=== PATIENT | male | born 1970 | race Two or more races ===

== ENCOUNTER 2019-10-29 16:29 | Emergency (ER) | payer MEDICAID ==
[~2019-10-29] VITALS: Ht 175.3 cm; Wt 99.8 kg
[2019-10-29 16:32] VITALS: BP 129/78
--- NOTE | 2019-10-29 16:53 | NUR ---
ambulatory with steady gait. given 2 sandwiches and tolerated well. Patient discharged to home in stable condition. Written and verbal after care instructions given. Patient verbalizes understanding of instruction. Refused to sign discharge paperworks.
== END 2019-10-29 16:53 | disposition home or self-care (01) ==
LOC: ER 16:35
DX: K42.9 Umbilical hernia without obstruction or gangrene (principal); Z76.0 Encounter for issue of repeat prescription

== ENCOUNTER 2021-01-19 00:53 | Emergency (ER) | payer MEDICAID ==
[~2021-01-19] VITALS: Ht 175.3 cm; Wt 99.8 kg
--- NOTE | 2021-01-19 01:13 | NUR ---
[id number], SUSPECTED DRUG OD.GIVEN NARCAN 2MG IV; PT AWAKE/ALERT IN TRIAGE, ANSWERING QUESTIONS. RR EVEN AND UNLABORED, NO SIGNS OF SOB NOTED. PATIENT CONNECTED TO [facility].
--- NOTE | 2021-01-19 04:00 | NUR ---
PATIENT IN BED SLEEPING EASY TO AROUSE. PATINET PROVIDED WITH FLUIDS PO, TOLERATED WELL. PATIENT VSS, WILL CONTINUE TO MONITOR.
[2021-01-19] MEDS ORDERED: NALO4SPR NS (05:11)
[2021-01-19 05:44] VITALS: BP 128/61
--- NOTE | 2021-01-19 05:44 | NUR ---
Patient discharged to home in stable condition. RX and Written and verbal after care instructions given. Patient verbalizes understanding of instruction.
== END 2021-01-19 05:45 | disposition home or self-care (01) ==
LOC: ER 00:56
DX: T40.601A Poisoning by unspecified narcotics, accidental (unintentional), initial encounter (principal); Y92.89 Other specified places as the place of occurrence of the external cause